=== PATIENT | female | born 1970 | race Caucasian/White ===

== ENCOUNTER 2016-06-13 09:07 | Day surgery (SDC) | payer BC ==
[~2016-06-13 09:07] MED LIST: RINGERS SOLUTION,LACTATED 1,000 ML IV PRN
[2016-06-13 09:34] LABS: Hematocrit 37.5 % (37.0-47.0); Hemoglobin 12.6 gm/dL (12.5-16.0); Mean Cell Volume 87.4 fl (78-100); Mean Corpuscular Hemoglobin 29.4 pg (27-31); Mean Corpuscular Hgb Conc 33.6 g/dl (32-36); Neutrophil # 3.4 K/mm3 (1.3-6.0); Neutrophil % 53.5 % (42-75.0); Platelet Count 339 K/mm3 (150-450); Red Blood Count 4.29 M/mm3 (4.2-5.4); Red Cell Distribution Width 13.1 % (11.5-14.0); White Blood Count 6.3 K/mm3 (4.0-10.5)
[2016-06-13] MEDS ORDERED: RINGERS SOLUTION,LACTATED 1,000 ML IV ONE (09:39)
[2016-06-13] MEDS ORDERED: oxyCODONE HCL/ACETAMINOPHEN 1 TAB TABLET PO PRN (11:24)
[2016-06-13] MEDS ORDERED: IBUPROFEN 600 MG TABLET PO PRN (11:25)
[2016-06-13 12:02] VITALS: BP 118/71
--- NOTE | 2016-06-13 12:51 | OR ---
Operative Report - Dictated Report Narrative: Operative Report 06/13/16 Hysteroscopy Dilatation and Curettage Preoperative Diagnosis: Metrorrhagia Postoperative Diagnosis: Metrorrhagia, Cervical Stenosis, Endocervical Polyp Procedure: Hysteroscopy Dilatation and Curettage Surgeon: Sabi Villatoro M.D. Anesthesia: Negro Renner CRNA, IV sedation Findings: Cervical stenosis. Uterine sound 13.5 cm. There was a endocervical polyp just inside the external cervical os removed with curettage. There was no evidence of endometrial polyp or submucosal fibroid. Fluids: 200 ml EBL: Minimal Drains: None Complications: None Condition: Stable Pathology: Endometrial curettings Procedure: The patient was taken to the operating room with IV fluids running. She was placed in the dorsal lithotomy position after anesthesia was induced. A bivalve speculum was placed in the vagina. The anterior lip of the cervix was grasped with a single-tooth tenaculum. Uterine sound was not easily passed. The 2 mm hysteroscope was used to navigate through the cervical canal. Uterine sound was 13.5 cm with hysteroscope. The cervix was dilated with Khai dilators. The hysteroscope was introduced into the endometrial cavity. The cavity was distended with normal saline. [place] were visualized bilaterally. There was no evidence of submucosal fibroid or endometrial polyp. The hysteroscope was removed. The cavity was sharply curetted without difficulty. The curett was used to remove endocervical polyp. The hysteroscope was once again introduced into the cavity. The cavity was completely curetted. The hysteroscope was removed. The single-tooth tenaculum was removed. Sites were hemostatic. The speculum was removed from the vagina. Sponge counts were correct 2. The patient tolerated the procedure well.
== END 2016-06-13 09:08 | disposition home or self-care (01) ==
LOC: AMB 09:07
PROVIDERS: ATTEND Obstetrics & Gynecology
PROC: 0UDB8ZX Extraction of Endometrium, Via Natural or Artificial Opening Endoscopic, Diagnostic (ICD-10-PCS; principal; 2016-06-13 10:30)
DX: N84.1 Polyp of cervix uteri (principal); N88.2 Stricture and stenosis of cervix uteri; N92.1 Excessive and frequent menstruation with irregular cycle; Z68.39 Body mass index [BMI] 39.0-39.9, adult

== ENCOUNTER 2016-11-16 06:44 | Day surgery (SDC) | payer BC ==
[~2016-11-16 06:44] MED LIST changes: +RINGER'S SOLUTION,LACTATED 1,000 ML IV PRN; -RINGERS SOLUTION,LACTATED 1,000 ML IV PRN; +ceFAZolin SODIUM 2 GM in DEXTROSE 5 % IN WATER 50 ML IV PRN
[2016-11-16] MEDS ORDERED: RINGER'S SOLUTION,LACTATED 1,000 ML IV ONE ×2 (07:12→10:20)
[2016-11-16] MEDS ORDERED: BUPIVACAINE HCL/EPINEPHRINE 50 ML VIAL IJ ONE ×2 (08:40)
--- NOTE | 2016-11-16 12:23 | OR ---
Operative Report - Dictated Report Narrative: Operative report: 11/16/2016 Preoperative diagnosis: Menometrorrhagia, dysmenorrhea Postoperative diagnosis: Same Procedure: Total laparoscopic hysterectomy, cystoscopy , bilateral salpingectomies, uterosacral ligament suspension Surgeon: Amy Roy D.O. Health Data Analyst: Or staff Anesthesia: Gen. IV fluids: 1200 Milliliters Urine output: 200 Milliliters Findings: Enlarged and elongated uterus, normal fallopian tubes bilaterally, normal appearing left ovary, right ovary with multiple small cysts, adherent peritoneum to the anterior serosa of the uterus, normal-appearing liver edge, bowel, and gallbladder. The bladder was without injury, bilateral ureteral jets were noted at the end of the procedure EBL: 50 Milliliters Drains: None Pathology: Uterus, cervix, and bilateral fallopian tubes Complications: None Condition: Stable The patient was taken to the operating room. Anesthesia was found to be adequate. The patient was prepped and draped in the normal sterile fashion in the dorsal lithotomy position. A sterile speculum was then inserted into the vagina. A [id number] suture was then placed on the anterior lip of the cervix. The V-Kextil manipulator was then inserted into the uterus and tied to the cervix. The speculum was removed. A Bedolla catheter was then inserted into the bladder to drain throughout the procedure. Attention was then turned to the abdomen. Local anesthetic was then injected within the umbilicus. A 5 mm skin incision was then made with the scalpel. A hemostat was then used to bluntly dissect down to the fascia. The camera was then inserted into the 5 mm trocar and the abdomen was entered under direct visualization. The abdomen was then insufflated to 12 mmHg. The abdomen was then surveyed and findings were noted as above. Attention was then turned to the left lower quadrant, the peritoneum was mapped with local anesthetic, skin incised, subcutaneous tissue bluntly dissected, and a 5 mm trocar entered into the peritoneum under direct visualization. These steps were then repeated on the opposite side. The fallopian tube was then grasped. Electrocautery was then used to sequentially cauterize, cut, and released from the broad ligament. The round ligament was then grasped cauterized and cut along with the utero-ovarian ligament. Electrocautery was then used to dissect the anterior leaf of broad ligament followed by the posterior leaf of the broad ligament. A thickened peritoneum was noted to be adherent to the anterior surface of the uterus. This was carefully dissected down. A bladder flap was then created. The uterine vessels were then cauterized and cut. Hemostasis was obtained. This was then repeated on the opposite side. The vagina was then incised along the V -care manipulator until the entire uterus and cervix were detached from the vagina. The uterus was then delivered through the vagina and sent to pathology. Minor bleeding was noted along the vaginal cuff and this was carefully cauterized. The vagina was then sutured in a anterior to posterior method including the uterosacral ligaments to obliterate the posterior cul-de- sac. Suction irrigation was then used. No bleeding was noted. The abdomen was then desufflated. The trochars were removed under direct visualization. The skin incisions were then reapproximated with 4-0 Monocryl. Benzoin and Steri-Strips were placed. A 2 x 2 cost was then placed within the umbilicus. Band-Aids were then placed. The speculum was then reinserted and the vaginal cuff inspected and was found to be intact and hemostatic with good apical support. The Bedolla catheter was then removed. A cystoscopy was then performed. The bladder appeared to be intact, without injury or trauma, bilateral ureteral jets were noted. The bladder was then drained and the cystoscope removed. The patient tolerated the procedure well. Sponge, lap, needle, and instrument counts were correct throughout the entire procedure. The patient was taken to the recovery room in stable condition.
[2016-11-16] MEDS ORDERED: oxyCODONE HCL/ACETAMINOPHEN 1 TAB TABLET PO PRN (12:27)
[2016-11-16] MEDS ORDERED: IBUPROFEN 800 MG TABLET PO PRN (12:28)
[2016-11-16] MEDS ORDERED: ONDANSETRON HCL/PF 2 MG/ML VIAL IV PRN (13:41)
[2016-11-17 16:28] VITALS: BP 151/71
== END 2016-11-16 06:45 | disposition home or self-care (01) ==
LOC: AMB 06:44
PROVIDERS: ATTEND Obstetrics & Gynecology Gynecologic Oncology
PROC: 0UTC4ZZ Resection of Cervix, Percutaneous Endoscopic Approach (ICD-10-PCS; 2016-11-16)
PROC: 0UT74ZZ Resection of Bilateral Fallopian Tubes, Percutaneous Endoscopic Approach (ICD-10-PCS; 2016-11-16)
PROC: 0UT94ZZ Resection of Uterus, Percutaneous Endoscopic Approach (ICD-10-PCS; principal; 2016-11-16 08:00)
DX: N72 Inflammatory disease of cervix uteri (principal); N92.1 Excessive and frequent menstruation with irregular cycle; N94.6 Dysmenorrhea, unspecified; E03.9 Hypothyroidism, unspecified; Z68.35 Body mass index [BMI] 35.0-35.9, adult